=== PATIENT | male | born 1930 | race Caucasian/White ===

== ENCOUNTER 2018-10-20 11:36 | Observation (INO) ==
[2018-10-20] MEDS ORDERED: SODIUM CHLORIDE 0.9% 1,000 ML IV STA (12:02)
[2018-10-20 12:23] LABS: Basophils % 0.3 % (0.0-0.8); Eosinophils # 0.1 10*3/uL (0.0-0.87); Eosinophils % 0.8 % (0.00-10.9); Hematocrit 38.3 VOL% (42.0-52.0); Hemoglobin 12.4 GM/DL (14.0-18.0); Immature Granulocytes % 0.6 %; Immature Granulocytes Absolute 0.06 #; Lymphocytes # 0.9 10*3/uL (1.4-4.0); Lymphocytes % 9.1 % (21.2-54.2); Mean Corpuscular HGB Conc 32.4 GM/DL (32-36); Mean Corpuscular Hemoglobin 32 PG (27-34); Mean Platelet Volume 10.7 FL (9.6-12.0); Monocytes # 0.6 10*3/uL (0.11-0.8); Monocytes % 5.7 % (1.7-12.7); Neutrophils # 8.3 10*3/uL (1.4-7.4); Neutrophils % 83.5 % (38.7-73.9); Platelet Count 284 T/CUMM (130-400); Red Blood Count 3.91 MC/CUMM (3.8-5.5)
[2018-10-20 12:35] LABS: INR 1.2; PT Patient Result 13.5 SECS; Partial Thromboplastin Time 38.5 SECS (0-40)
[2018-10-20] MEDS ORDERED: LEVOFLOXACIN INJ 500 MG in PREMIX 1 EACH IV STA (12:42)
[2018-10-20 12:47] LABS: Albumin 2.7 G/DL (3.4-5.0); Bilirubin,Total 0.7 MG/DL (0.2-1.0); Calcium 9.4 MG/DL (8.5-10.1); Osmolality,Calculated 279.5 MOS/KG (273-304); Potassium 3.6 MMOL/L (3.5-5.1); Total Protein 6.5 G/DL (6.4-8.3)
[2018-10-20 13:18] LABS: Apearance,Urine CLEAR (Clear); Bilirubin,Urine Negative (Negative); Blood, Urine Negative (Negative); Glucose,Urine (UA) Negative (Negative); Ketones,Urine Negative (Negative); Mucus,Urine Occasional /LPF (Occasional); Nitrite,Urine Negative (Negative); Protein,Urine Negative; RBC,Urine 1 /HPF (0-4); Squamous Epithelial Cell,Urine Occasional /HPF (0-10); Urine Color Yellow (Yellow); Urine Specific Gravity 1.017 (1.001-1.035); Urine Urobilinogen < 2.0 EU/DL (0.2-1.0); WBC,Urine 2 /HPF (0-6)
[2018-10-20] MEDS ORDERED: ACETAMINOPHEN 325 MG TABLET PO PRN (14:50)
[2018-10-20] MEDS ORDERED: ONDANSETRON 4 MG/2 ML VIAL IV PRN (14:50)
[2018-10-20] MEDS ORDERED: DOCUSATE SODIUM 100 MG CAPSULE PO PRN (14:50)
[2018-10-20] MEDS ORDERED: ALBUTEROL 2.5 MG/3 ML NEB RESP TX PRN ×2 (14:50→14:59)
[2018-10-20] MEDS ORDERED: ENOXAPARIN 40 MG/0.4 ML SYRINGE SUBCUT SCH (15:00)
[2018-10-20] MEDS ORDERED: GLUCAGON 1 MG VIAL IM PRN (15:16)
[2018-10-20] MEDS ORDERED: DEXTROSE 50% 25 GM/50 ML VIAL IV PRN (15:16)
[2018-10-20 15:34] LABS: Risk Ratio 2.29; Thyroid Stimulating Hormone 1.62 uIU/ml (0.358-3.74); VLDL CHOLESTEROL 16.4 MG/DL
[2018-10-20] MEDS ORDERED: cefTRIAXone 1,000 MG VIAL ONE (15:55)
[2018-10-20] MEDS: cefTRIAXone 1,000 MG in SYRINGE 1 EACH IV SCH (15:58)
[2018-10-20] MEDS: BENZONATATE 100 MG CAPSULE PO SCH ×2 (16:00→21:10)
[2018-10-20] MEDS: AZITHROMYCIN INJ 500 MG in SODIUM CHLORIDE 0.9% 250 ML IV SCH (16:00)
[2018-10-20] MEDS: INSULIN LISPRO 100 UNIT/ML SUBCUT SCH ×2 (17:19→21:11)
[2018-10-20] MEDS: ALBUTEROL/IPRATROPIUM 3 ML NEB RESP TX SCH (20:00)
[2018-10-20] MEDS: BUDESONIDE/FORMOTEROL 160-4.5 INHALER 6 GM INH SCH (21:06)
[2018-10-20] MEDS: LATANOPROST 0.005% OPH SOLN 2.5 ML BOTTLE BOTH EYES SCH (21:06)
[2018-10-20] MEDS: MOMETASONE/FORMOTEROL 200-5 INHALER 8.8 GM INH SCH (21:06)
[2018-10-20] MEDS: MAGNESIUM CHLORIDE 64 MG TABLET PO SCH (21:10)
[2018-10-20] MEDS: THEOPHYLLINE ER (24 HR) 200 MG CAPSULE PO SCH (21:10)
[2018-10-20] MEDS: LOSARTAN 25 MG TABLET PO SCH (21:10)
[2018-10-20] MEDS: ROSUVASTATIN 10 MG TABLET PO SCH (21:10)
[2018-10-20] MEDS: APIXABAN 5 MG TABLET PO SCH (21:10)
[2018-10-20] MEDS: POTASSIUM CHLORIDE 20 MEQ PACK PO SCH (21:11)
[2018-10-20] MEDS: SERTRALINE 50 MG TABLET PO SCH (21:11)
[2018-10-20] MEDS: RIVASTIGMINE 3 MG CAPSULE PO SCH (21:11)
[2018-10-20] MEDS: TAMSULOSIN 0.4 MG CAPSULE PO SCH (21:11)
[2018-10-20] MEDS: GABAPENTIN 300 MG CAPSULE PO SCH (21:11)
[2018-10-21 05:05] LABS: Basophils % 0.3 % (0.0-0.8); Eosinophils % 0.4 % (0.00-10.9); Hematocrit 31.5 VOL% (42.0-52.0); Hemoglobin 10.3 GM/DL (14.0-18.0); Immature Granulocytes % 0.7 %; Immature Granulocytes Absolute 0.05 #; Lymphocytes % 14.1 % (21.2-54.2); Mean Corpuscular HGB Conc 32.7 GM/DL (32-36); Mean Corpuscular Hemoglobin 31 PG (27-34); Mean Corpuscular Volume 95.7 FL (87-102); Mean Platelet Volume 11.3 FL (9.6-12.0); Monocytes # 0.6 10*3/uL (0.11-0.8); Monocytes % 8.3 % (1.7-12.7); Neutrophils # 5.1 10*3/uL (1.4-7.4); Neutrophils % 76.2 % (38.7-73.9); Platelet Count 243 T/CUMM (130-400); Red Blood Count 3.29 MC/CUMM (3.8-5.5); Red Cell Distribution Width 13.9 % (9.3-17.3); White Blood Count 6.7 T/CUMM (4-12)
[2018-10-21 05:25] LABS: Calcium 8.4 MG/DL (8.5-10.1); Osmolality,Calculated 280.3 MOS/KG (273-304); Potassium 3.2 MMOL/L (3.5-5.1)
[2018-10-21] MEDS: ALBUTEROL/IPRATROPIUM 3 ML NEB RESP TX SCH ×4 (08:20→18:56)
[2018-10-21] MEDS ORDERED: POTASSIUM CHLORIDE 20 MEQ TABLET PO PRN (08:48)
[2018-10-21] MEDS: INSULIN LISPRO 100 UNIT/ML SUBCUT SCH ×4 (09:07→21:24)
[2018-10-21] MEDS: MAGNESIUM CHLORIDE 64 MG TABLET PO SCH ×2 (09:08→21:24)
[2018-10-21] MEDS: POTASSIUM CHLORIDE 20 MEQ PACK PO SCH ×2 (09:08→21:24)
[2018-10-21] MEDS: RIVASTIGMINE 3 MG CAPSULE PO SCH ×2 (09:08→21:24)
[2018-10-21] MEDS: hydroCHLOROthiazide 12.5 MG CAPSULE PO SCH (09:09)
[2018-10-21] MEDS: amLODIPine 2.5 MG TABLET PO SCH (09:09)
[2018-10-21] MEDS: PANTOPRAZOLE 40 MG TABLET PO SCH (09:09)
[2018-10-21] MEDS: ALLOPURINOL 300 MG TABLET PO SCH (09:09)
[2018-10-21] MEDS: FINASTERIDE 5 MG TABLET PO SCH (09:09)
[2018-10-21] MEDS: BENZONATATE 100 MG CAPSULE PO SCH ×3 (09:09→21:24)
[2018-10-21] MEDS: BUDESONIDE/FORMOTEROL 160-4.5 INHALER 6 GM INH SCH ×2 (09:09→21:23)
[2018-10-21] MEDS: GABAPENTIN 300 MG CAPSULE PO SCH ×2 (09:09→21:24)
[2018-10-21] MEDS: TAMSULOSIN 0.4 MG CAPSULE PO SCH ×2 (09:09→21:24)
[2018-10-21] MEDS: APIXABAN 5 MG TABLET PO SCH (09:09)
[2018-10-21] MEDS: MOMETASONE/FORMOTEROL 200-5 INHALER 8.8 GM INH SCH ×2 (09:09→21:23)
[2018-10-21] MEDS: DORZOLAMIDE/TIMOLOL OPH SOLN 10 ML BOTTLE BOTH EYES SCH ×2 (10:42→21:26)
[2018-10-21] MEDS: AZITHROMYCIN INJ 500 MG in SODIUM CHLORIDE 0.9% 250 ML IV SCH (14:35)
[2018-10-21] MEDS: cefTRIAXone 1,000 MG in SYRINGE 1 EACH IV SCH (14:35)
[2018-10-21 16:27] LABS: Apearance,Urine CLEAR (Clear); Bilirubin,Urine Negative (Negative); Blood, Urine Negative (Negative); Glucose,Urine (UA) Negative (Negative); Ketones,Urine Negative (Negative); Mucus,Urine Occasional /LPF (Occasional); Nitrite,Urine Negative (Negative); Protein,Urine Negative; RBC,Urine 1 /HPF (0-4); Squamous Epithelial Cell,Urine Occasional /HPF (0-10); Urine Color Yellow (Yellow); Urine Specific Gravity 1.014 (1.001-1.035); Urine Urobilinogen < 2.0 EU/DL (0.2-1.0); WBC,Urine 2 /HPF (0-6)
[2018-10-21] MEDS: ROSUVASTATIN 10 MG TABLET PO SCH (21:24)
[2018-10-21] MEDS: SERTRALINE 50 MG TABLET PO SCH (21:24)
[2018-10-21] MEDS: LOSARTAN 25 MG TABLET PO SCH (21:24)
[2018-10-21] MEDS: THEOPHYLLINE ER (24 HR) 200 MG CAPSULE PO SCH (21:24)
[2018-10-21] MEDS: LATANOPROST 0.005% OPH SOLN 2.5 ML BOTTLE BOTH EYES SCH (21:26)
[2018-10-22] MEDS: ALBUTEROL/IPRATROPIUM 3 ML NEB RESP TX SCH ×4 (00:17→19:35)
[2018-10-22 07:59] LABS: Basophils % 0.5 % (0.0-0.8); Eosinophils # 0.1 10*3/uL (0.0-0.87); Eosinophils % 0.8 % (0.00-10.9); Hematocrit 32.9 VOL% (42.0-52.0); Hemoglobin 10.7 GM/DL (14.0-18.0); Immature Granulocytes % 1.5 %; Immature Granulocytes Absolute 0.09 #; Lymphocytes % 16.1 % (21.2-54.2); Mean Corpuscular HGB Conc 32.5 GM/DL (32-36); Mean Corpuscular Hemoglobin 32 PG (27-34); Mean Corpuscular Volume 96.8 FL (87-102); Mean Platelet Volume 10.8 FL (9.6-12.0); Monocytes # 0.5 10*3/uL (0.11-0.8); Monocytes % 7.8 % (1.7-12.7); Neutrophils # 4.5 10*3/uL (1.4-7.4); Neutrophils % 73.3 % (38.7-73.9); Platelet Count 244 T/CUMM (130-400); Red Cell Distribution Width 14.2 % (9.3-17.3); White Blood Count 6.2 T/CUMM (4-12)
[2018-10-22] MEDS: INSULIN LISPRO 100 UNIT/ML SUBCUT SCH ×4 (08:12→21:24)
[2018-10-22 08:18] LABS: Calcium 8.6 MG/DL (8.5-10.1); Osmolality,Calculated 275.5 MOS/KG (273-304); Potassium 3.1 MMOL/L (3.5-5.1)
[2018-10-22] MEDS: RIVASTIGMINE 3 MG CAPSULE PO SCH ×2 (09:01→20:41)
[2018-10-22] MEDS: MAGNESIUM CHLORIDE 64 MG TABLET PO SCH ×2 (09:01→20:41)
[2018-10-22] MEDS: POTASSIUM CHLORIDE 20 MEQ PACK PO SCH ×2 (09:01→20:41)
[2018-10-22] MEDS: AZITHROMYCIN 250 MG TABLET PO SCH (09:02)
[2018-10-22] MEDS: TAMSULOSIN 0.4 MG CAPSULE PO SCH ×2 (09:02→20:41)
[2018-10-22] MEDS: amLODIPine 2.5 MG TABLET PO SCH (09:02)
[2018-10-22] MEDS: PANTOPRAZOLE 40 MG TABLET PO SCH (09:02)
[2018-10-22] MEDS: BENZONATATE 100 MG CAPSULE PO SCH ×3 (09:02→20:41)
[2018-10-22] MEDS: FINASTERIDE 5 MG TABLET PO SCH (09:02)
[2018-10-22] MEDS: hydroCHLOROthiazide 12.5 MG CAPSULE PO SCH (09:02)
[2018-10-22] MEDS: BUDESONIDE/FORMOTEROL 160-4.5 INHALER 6 GM INH SCH ×2 (09:03→20:42)
[2018-10-22] MEDS: MOMETASONE/FORMOTEROL 200-5 INHALER 8.8 GM INH SCH ×2 (09:03→20:41)
[2018-10-22] MEDS: ALLOPURINOL 300 MG TABLET PO SCH (09:03)
[2018-10-22] MEDS: GABAPENTIN 300 MG CAPSULE PO SCH ×2 (09:03→20:41)
[2018-10-22] MEDS: DORZOLAMIDE/TIMOLOL OPH SOLN 10 ML BOTTLE BOTH EYES SCH ×2 (09:03→20:41)
[2018-10-22] MEDS: cefTRIAXone 1,000 MG in SYRINGE 1 EACH IV SCH (14:16)
[2018-10-22] MEDS: LOSARTAN 25 MG TABLET PO SCH (20:41)
[2018-10-22] MEDS: ROSUVASTATIN 10 MG TABLET PO SCH (20:41)
[2018-10-22] MEDS: SERTRALINE 50 MG TABLET PO SCH (20:41)
[2018-10-22] MEDS: THEOPHYLLINE ER (24 HR) 200 MG CAPSULE PO SCH (20:41)
[2018-10-22] MEDS: LATANOPROST 0.005% OPH SOLN 2.5 ML BOTTLE BOTH EYES SCH (21:24)
[2018-10-23] MEDS: ALBUTEROL/IPRATROPIUM 3 ML NEB RESP TX SCH ×2 (01:43→08:23)
[2018-10-23] MEDS: INSULIN LISPRO 100 UNIT/ML SUBCUT SCH ×2 (08:04→11:17)
[2018-10-23 08:14] LABS: Basophils % 0.5 % (0.0-0.8); Eosinophils # 0.1 10*3/uL (0.0-0.87); Eosinophils % 1.1 % (0.00-10.9); Hematocrit 34.1 VOL% (42.0-52.0); Hemoglobin 10.9 GM/DL (14.0-18.0); Immature Granulocytes % 1.1 %; Immature Granulocytes Absolute 0.07 #; Lymphocytes # 1.1 10*3/uL (1.4-4.0); Lymphocytes % 17.2 % (21.2-54.2); Mean Corpuscular Hemoglobin 31 PG (27-34); Mean Corpuscular Volume 97.2 FL (87-102); Mean Platelet Volume 10.9 FL (9.6-12.0); Monocytes # 0.6 10*3/uL (0.11-0.8); Monocytes % 8.7 % (1.7-12.7); Neutrophils # 4.6 10*3/uL (1.4-7.4); Neutrophils % 71.4 % (38.7-73.9); Platelet Count 243 T/CUMM (130-400); Red Blood Count 3.51 MC/CUMM (3.8-5.5); Red Cell Distribution Width 14.4 % (9.3-17.3); White Blood Count 6.5 T/CUMM (4-12)
[2018-10-23 08:26] LABS: Calcium 8.6 MG/DL (8.5-10.1); Osmolality,Calculated 279.4 MOS/KG (273-304)
[2018-10-23] MEDS: PANTOPRAZOLE 40 MG TABLET PO SCH (08:34)
[2018-10-23] MEDS: BUDESONIDE/FORMOTEROL 160-4.5 INHALER 6 GM INH SCH (08:34)
[2018-10-23] MEDS: BENZONATATE 100 MG CAPSULE PO SCH (08:34)
[2018-10-23] MEDS: ALLOPURINOL 300 MG TABLET PO SCH (08:34)
[2018-10-23] MEDS: TAMSULOSIN 0.4 MG CAPSULE PO SCH (08:34)
[2018-10-23] MEDS: AZITHROMYCIN 250 MG TABLET PO SCH (08:34)
[2018-10-23] MEDS: FINASTERIDE 5 MG TABLET PO SCH (08:34)
[2018-10-23] MEDS: hydroCHLOROthiazide 12.5 MG CAPSULE PO SCH (08:34)
[2018-10-23] MEDS: MAGNESIUM CHLORIDE 64 MG TABLET PO SCH (08:34)
[2018-10-23] MEDS: GABAPENTIN 300 MG CAPSULE PO SCH (08:34)
[2018-10-23] MEDS: amLODIPine 2.5 MG TABLET PO SCH (08:34)
[2018-10-23] MEDS: DORZOLAMIDE/TIMOLOL OPH SOLN 10 ML BOTTLE BOTH EYES SCH (08:34)
[2018-10-23] MEDS: POTASSIUM CHLORIDE 20 MEQ PACK PO SCH (08:34)
[2018-10-23] MEDS: RIVASTIGMINE 3 MG CAPSULE PO SCH (08:34)
[2018-10-23] MEDS: MOMETASONE/FORMOTEROL 200-5 INHALER 8.8 GM INH SCH (08:35)
[2018-10-23 11:21] VITALS: BP 120/72
== END 2018-10-23 11:28 | disposition home or self-care (01) ==
LOC: N.ED 11:36 → N.EDINP 11:36 → SUATTDRO 14:50 → N.EDINP 16:47 → N.5E 16:55
PROVIDERS: ADMIT Internal Medicine; ATTEND Hospitalist